=== PATIENT | female | born 2005 | race African-American/Black ===

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

== ENCOUNTER 2023-10-27 21:59 | Emergency (ER) | payer OTHER ==
[~2023-10-27] VITALS: Ht 160 cm; Wt 56.8 kg
[2023-10-27 23:37] LABS: APPEARANCE,URINE CLEAR (CLEAR); BILIRUBIN,URINE NEGATIVE (NEGATIVE); COLOR,URINE YELLOW (YELLOW); GLUCOSE, URINE (UA) NEGATIVE (NEGATIVE); KETONES,URINE NEGATIVE (NEGATIVE); LEUKOCYTE ESTERASE ,URINE MODERATE (NEGATIVE); NITRATE,URINE NEGATIVE (NEGATIVE); OCCULT BLOOD,URINE NEGATIVE (NEGATIVE); PH,URINE 6.5 (5.0-8.0); PROTEIN,URINE 30-70 mg/dL (NEGATIVE); SPECIFIC GRAVITIY, URINE 1.028 (1.003-1.030); UROBILINOGEN,URINE <=1.0 mg/dL (<=1.0)
[2023-10-28 00:21] LABS: BACTERIA,URINE Few /HPF (None Seen); RBC,URINE None Seen /HPF (0-2); SQUAMOUS EPITHELIAL CELL,UR Moderate /LPF (None Seen)
[2023-10-28] MEDS: ACETAMINOPHEN 325 MG TABLET PO ONE (00:31)
[2023-10-28 00:33] VITALS: BP 97/51; PULSE 71; RESP 16; TEMP 98.2
[2023-10-28] MEDS ORDERED: CEPH-558 PO (00:46)
[2023-10-28] MEDS ORDERED: ACET-2247 PO (00:46)
[2023-10-28] MEDS: CEPHALEXIN MONOHYDRATE 500 MG CAPSULE PO ONE (00:56)
== END 2023-10-28 00:59 | disposition home or self-care (01) ==
LOC: EMS 21:59
DX: O26.893 Other specified pregnancy related conditions, third trimester (principal); R82.71 Bacteriuria; F12.90 Cannabis use, unspecified, uncomplicated; Z3A.28 28 weeks gestation of pregnancy
CPT/HCPCS: 76805; 81001; 99284; Z7502; Z7610

== ENCOUNTER 2024-09-29 17:53 | Emergency (ER) | payer OTHER ==
[~2024-09-29] VITALS: Ht 152.4 cm; Wt 50.0 kg
[~2024-09-29 17:53] MED LIST: ACET-2247 PO; CEPH-558 PO
[2024-09-29] MEDS ORDERED: IBUP-1554 PO (19:29)
[2024-09-29] MEDS ORDERED: BACI28.410 TP (19:29)
[2024-09-29] MEDS ORDERED: ACET-66 PO (19:29)
[2024-09-29] MEDS: ACETAMINOPHEN 500 MG TABLET PO ONE (19:37)
[2024-09-29] MEDS: IBUPROFEN 600 MG TABLET PO ONE (19:37)
[2024-09-29] MEDS: BACITRACIN 28 GM OINTMENT TP ONE (19:37)
[2024-09-29 20:00] VITALS: BP 119/68; PULSE 86; RESP 18; TEMP 97.3; O2SAT 100
== END 2024-09-30 00:10 | disposition home or self-care (01) ==
LOC: EMS 17:53
DX: S90.821A Blister (nonthermal), right foot, initial encounter (principal); F12.90 Cannabis use, unspecified, uncomplicated; X58.XXXA Exposure to other specified factors, initial encounter; Y93.89 Activity, other specified; Y92.89 Other specified places as the place of occurrence of the external cause; Y99.8 Other external cause status
CPT/HCPCS: 99284; Z7502; Z7610

== ENCOUNTER 2024-12-27 10:26 | Emergency (ER) | payer OTHER ==
[~2024-12-27] VITALS: Ht 157.5 cm; Wt 50.0 kg
[~2024-12-27 10:26] MED LIST changes: -ACET-2247 PO; +ACET-66 PO; +BACI28.410 TP; -CEPH-558 PO; +IBUP-1554 PO
[2024-12-27 10:30] VITALS: TEMP 98.1
[2024-12-27 12:00] LABS: COVID AG,FIA SOURCE NASAL SWAB
[2024-12-27 12:05] LABS: PLATELET COUNT (AUTO) 282 K/uL (150-450); RED BLOOD CELL COUNT(AUTO) 4.51 MIL/uL (4.00-5.20); RED CELL DISTRIBUTION WIDTH 18.2 % (11.5-14.5); WHITE BLOOD COUNT (AUTO) 5.9 K/uL (4.5-11.0)
[2024-12-27 12:08] LABS: CALCIUM, TOTAL 8.9 mg/dL (8.8-10.5); CREATININE 0.47 mg/dL (0.60-1.30); GLOMERULAR FILTR. RATE CALC > 60 mL/min (>60); GLUCOSE,RANDOM 85 mg/dL (70-110); SODIUM SERUM 139 mmol/L (136-145); UREA NITROGEN, BLOOD 6 mg/dL (7-18)
[2024-12-27 12:25] LABS: INFLUENZA TYPE A NEGATIVE FOR TYPE A (NEGATIVE); INFLUENZA TYPE B NEGATIVE FOR TYPE B (NEGATIVE)
[2024-12-27 12:28] LABS: SARS-COV2 (COVID) ANTIGEN,FIA Positive (Negative)
[2024-12-27 12:48] LABS: APPEARANCE,URINE CLEAR (CLEAR); GLUCOSE, URINE (UA) NEGATIVE (NEGATIVE); LEUKOCYTE ESTERASE ,URINE NEGATIVE (NEGATIVE); NITRATE,URINE NEGATIVE (NEGATIVE); OCCULT BLOOD,URINE NEGATIVE (NEGATIVE); SPECIFIC GRAVITIY, URINE 1.023 (1.003-1.030)
[2024-12-27] MEDS: SODIUM CHLORIDE 0.9% 1,000 ML IV ONE (13:32)
[2024-12-27] MEDS ORDERED: IBUP-1492 PO (14:42)
[2024-12-27] MEDS ORDERED: BENZ-227 PO (15:06)
[2024-12-27 15:07] VITALS: BP 121/74; PULSE 78; RESP 18; O2SAT 98
== END 2024-12-27 15:09 | disposition home or self-care (01) ==
LOC: EMS 10:27
DX: U07.1 COVID-19 (principal); F41.9 Anxiety disorder, unspecified; R11.2 Nausea with vomiting, unspecified; R10.32 Left lower quadrant pain; R19.7 Diarrhea, unspecified; F12.90 Cannabis use, unspecified, uncomplicated
CPT/HCPCS: 99283; 96360; 87426; 80048; 81003; 84703; 85025; 87804; 36415; J7030